=== PATIENT | male | born 1940 | race Two or more races ===

== ENCOUNTER 2018-10-11 07:53 | Outpatient (CLI) | payer OTHER | END 2018-10-11 08:06 | disposition home or self-care (01) | LOC: NUCLEAR 07:53 | DX: I20.0 Unstable angina (principal); I11.9 Hypertensive heart disease without heart failure; E78.2 Mixed hyperlipidemia; I25.10 Atherosclerotic heart disease of native coronary artery without angina pectoris | CPT/HCPCS: 78452; 93017; A9500 ==